=== PATIENT | male | born 1970 | race African-American/Black ===

== ENCOUNTER → 2020-06-30 | Outpatient (CLI) | payer MEDICAID ==
[2020-06-30 15:59] LABS: POTASSIUM 3.7 mmol/L (3.6-5.0)
== END ==
LOC: OD 14:38
PROVIDERS: ATTEND Internal Medicine Nephrology
DX: E87.6 Hypokalemia (principal); E83.42 Hypomagnesemia
CPT/HCPCS: 36415; 83735; 84132